=== PATIENT | male | born 1955 | race Caucasian/White ===

== ENCOUNTER 2017-11-17 14:12 | Day surgery (SDC) | END 2017-11-17 21:36 | disposition home or self-care (01) ==

== ENCOUNTER 2017-12-29 15:22 | Inpatient (IN) | END 2017-12-31 13:25 | disposition home or self-care (01) | DRG 872 ==

== ENCOUNTER 2018-01-16 14:51 | Emergency (ER) | END 2018-01-16 20:16 | disposition home or self-care (01) ==

== ENCOUNTER 2018-04-27 13:57 | Day surgery (SDC) | payer OTHER ==
[2018-04-27] VITALS (16 sets, daily range): BP systolic 80–186; BP diastolic 84–109; PULSE 68–84; RESP 15–23; Ht 172.7 cm; Wt 126.6 kg
[~2018-04-27] VITALS: Ht 172.7 cm; Wt 126.6 kg
[~2018-04-27 13:57] MED LIST: ALBU8.5H8 INH; AMLO-147 PO; ASPI-817 PO; BUSP10TA2 PO; CEPH-443 PO; DICL50TA11 PO; FAMO40TA5 PO; FINA5TAB4 PO; GABA300C16 PO; GLIM2TAB PO; IPRA4AER INHALATION; LISI40TA3 PO; MECL-77 PO; METF100010 PO; METO-429 PO; MONT10TA24 PO; OMEP20CA16 PO; OXYB5TAB PO; PRAS10TA6 PO; SULF1TAB31 PO; SYMB80120 INHALATION; TAMS-14 PO; TIMO5DRO30 BOTH EYES; TIOT18CA INHALATION
[2018-04-27] MEDS ORDERED: FENTAnyl 50 MCG/ML VIAL ONE (17:19)
[2018-04-27] MEDS ORDERED: MIDAZOLAM 1 MG/ML 2 ML INJ ONE (17:19)
[2018-04-27] MEDS ORDERED: LIDOCAINE 1% (MDV) 20 ML INJ ONE (17:20)
[2018-04-27] MEDS ORDERED: IODIXANOL LOCM 100 ML BTL ONE ×3 (17:20→17:51)
[2018-04-27] MEDS ORDERED: DIPHENHYDRAMINE 50 MG INJ ONE (17:26)
--- NOTE | 2018-04-27 18:09 | SIPON ---
Date/Time of Note Date/Time of Note DATE: 04/27/18 TIME: 18:08 Operative Report Preoperative Diagnosis unstable angina Postoperative Diagnosis same Operation/Procedure Performed left heart cath Surgeon see signature line office manager executive assistant none Anesthesia: moderate sedation, other Estimated blood loss: 0 - 10 ml's Transfusion Required none Specimen none Grafts/Implants none Complications none JANIE ALEJO MD Apr 27, 2018 18:09
[2018-04-27] MEDS ORDERED: SOD CHLORIDE 0.45% 1,000 ML IV SCH (19:00)
[2018-04-27] MEDS ORDERED: GLUCOSE GEL 15 GRAM TUBE PO PRN ×2 (21:00)
[2018-04-27] MEDS ORDERED: AMLODIPINE 10 MG TAB PO ONE ×2 (21:00→22:00)
[2018-04-27] MEDS ORDERED: ASPIRIN 81 MG TAB PO ONE (21:00)
[2018-04-27] MEDS ORDERED: GLIMEPIRIDE 2 MG TAB PO ONE (21:00)
[2018-04-27] MEDS ORDERED: DEXTROSE 50% 50 ML SYRINGE IV PRN ×2 (21:00)
[2018-04-27] MEDS ORDERED: METOPROLOL 25 MG TAB PO SCH (21:00)
[2018-04-27] MEDS ORDERED: GLUCAGON 1 MG INJ IM PRN (21:00)
[2018-04-27] MEDS ORDERED: GLUCOSE GEL 15 GRAM TUBE BUCCAL PRN (21:00)
[2018-04-27] MEDS ORDERED: LISINOPRIL 20 MG TAB PO ONE (21:00)
--- NOTE | 2018-04-28 10:18 | OPR ---
DATE OF OPERATION: 04/27/2018 INDICATION FOR THE PROCEDURE: Significant chest pain, shortness of breath. The patient had a positive stress test. As a result, the patient now presents for angiography. The patient has had a history of coronary artery disease as well as a single vessel coronary artery b ypass graft of the THACKER to the LAD territory as well as a history of aortic valve replacement with a bioprosthetic valve. PROCEDURE: 1. Left heart catheterization. 2. Selective right coronary angiography, attempted. 3. Aortic root angiography. 4. Left coronary angiography. 5. O2 sat monitoring, blood pressure monitoring. 6. Attempting THACKER angiography. 7. Left ventriculogram was not performed. 8. O2 sat monitoring, blood pressure monitoring as well as conscious sedation for 1 hour. 9. Please note that at [facility] the laboratory for the catheterization has been turned down for repairs. As a result, we used a fluoroscopy such as C-arm and the images are not as optimal as normal sonography performed in the cardiac catheterization laboratory. The patient weighs approximately 240 pounds. DESCRIPTION OF PROCEDURE: After informed consent was obtained by the patient, the patient was aman t to the catheterization laboratory where the patient's right groin was prepped and draped in usual s terile fashion. Following this, 1% lidocaine was used in order to infiltrate the right groin. A 6-F rench sheath was placed. Following this, the patient had over the wire system in order to perform th e catheterization. The left coronary angiography was performed; attempted right coronary angiography was performed and also aortic root angiography was performed. Left ventriculogram was not performed secondary to aortic valve prosthesis. FINDINGS: 1. The left main was patent. The left main gave branches to the LAD. There was a retrograde fill i nto the bypass graft by injecting through the left main. It appeared to be patent. In addition to t his, the patient had a patent circumflex coronary artery and it was large, as well as a large LAD. T hen, it was patent. The diagonal branch was bypassed. In addition to this, the patient had a very s mall diagonal on angle which was approximately 80% blocked. However, this was bypassed. A right coronary angiography was attempted multiple times with different catheters. However, due to the fact that the patient has aortic root and aortic valve procedure, I was unable to perform this pr ocedure secondary to anatomy. Different catheters were performed. Aortic root angiography was then performed and the visualization of the right coronary was not seen. It is possible that the RCA is o ccluded. The patient will be managed medically at this point, there is no need to stent the small stenosis vis ualized near the bypass graft because it was bypassed. IMPRESSION: Coronary artery disease present. The patient will be continued to have medical therapy and will follow up with me. Dictated By: JANIE ALEJO MD, LP/ES Conf#: [id number] DID#: [id number]
--- NOTE | 2018-04-28 10:51 | OPR ---
DATE OF OPERATION: 04/27/2018 INDICATION FOR THE PROCEDURE: History of coronary artery disease, hypertension, hyperlipidemia, as w ell as obesity and diabetes. Patient has had a history of coronary bypass graft with a single vessel bypass as well as aortic valve replacement. The bypass was approximately 2 years ago. Now, the pat ient presents for angiogram secondary to the fact that the patient's stress test was positive. PROCEDURE: 1. Left heart catheterization. 2. Selective left coronary angiography. 3. Attempted right coronary angiography in a selective fashion. 4. Aortic root angiography. 5. Left ventriculogram was not performed due to aortic valve bioprosthesis. 6. Right groin angiography and Angio-Seal deployment. 7. Conscious sedation. 8. O2 sat monitoring, blood pressure monitoring. DESCRIPTION OF PROCEDURE: After informed consent was obtained by the patient, the patient was aman t to the catheterization laboratory where the patient's right groin was prepped and draped in usual s terile fashion. Following this, 1% lidocaine was used in order to infiltrate at the right groin. Th en, following a 6-Kyrgyz sheath was placed and over the wire system was used in order to advance the catheter into the coronary system. Following this, angiography was performed. FINDINGS: 1. The patient had a patent left main artery. Left main gave branches to the circumflex as well as to the LAD. Diagonal branch was bypassed and there was a retrograde fill. It appeared to be patent. 2. The patient had attempted right coronary angiography and it was not possible secondary to the his tory of replacement of the aortic valve and could not engage into the right coronary artery. Therefo re, aortic root angiography was performed and I was not able to see the right coronary artery. It is possible that the right coronary artery is occluded. 3. No complications occurred. 4. The left main was patent. The left main gave branches to the LAD and circumflex. 5. The LAD was patent. The circumflex was patent with 20% stenosis. There was a diagonal branch wh ich had approximately 80% stenosis and this was actually bypassed. It appeared that the patient had retrograde fill to the bypass. 3. The RCA was not visualized. Aortic root angiography was performed and I could not see the RCA ei ther and the aortic root did not appear to be enlarged. IMPRESSION: Vascular disease present but no need for intervention secondary to the bypass grafting p resent. The patient will continue current medical therapy and follow up with me. Dictated By: JANIE ALEJO MD, LP/ES Conf#: [id number] DID#: [id number]
== END 2018-04-27 22:03 | disposition home or self-care (01) ==
LOC: CCL 13:57 → SDS 13:57 → CCL 22:03
PROVIDERS: ATTEND Internal Medicine
DX: I25.10 Atherosclerotic heart disease of native coronary artery without angina pectoris (principal); E11.9 Type 2 diabetes mellitus without complications; R94.31 Abnormal electrocardiogram [ECG] [EKG]; I73.9 Peripheral vascular disease, unspecified; I10 Essential (primary) hypertension; J45.909 Unspecified asthma, uncomplicated; Z87.891 Personal history of nicotine dependence
CPT/HCPCS: 71045; 82962; 93454; C1760; C1887; C1894; J1200; J1644; J2250; J3010; Q9967; Z7610

== ENCOUNTER 2018-07-30 13:12 | Inpatient (IN) | payer OTHER ==
[2018-07-30] VITALS (15 sets, daily range): BP systolic 136–158; BP diastolic 81–98; PULSE 66–72; RESP 15–29; Ht 170.2 cm; Wt 124.4 kg
[~2018-07-30] VITALS: Ht 170.2 cm; Wt 124.4 kg
[~2018-07-30 13:12] MED LIST changes: -CEPH-443 PO; +PROPOFOL 200 MG INJ ONE; -SULF1TAB31 PO
[2018-07-30] MEDS ORDERED: VANCOMYCIN 1 GM (PMX) 250 ML ONE (13:50)
[2018-07-30] MEDS ORDERED: METO-407 PO ×2 (14:14→19:58)
[2018-07-30] MEDS ORDERED: GLIM2TAB47 PO ×2 (14:17→19:58)
[2018-07-30] MEDS ORDERED: FURO-109 PO (14:18)
[2018-07-30] MEDS ORDERED: ISOS30TA67 PO (14:18)
[2018-07-30] MEDS ORDERED: AMIO200T4 PO (14:19)
[2018-07-30] MEDS ORDERED: PRAS10TA6 PO (14:19)
[2018-07-30] MEDS ORDERED: METF100010 PO (14:20)
[2018-07-30] MEDS ORDERED: VANCOMYCIN 1 GM (PMX) 250 ML IVPB ONE (14:30)
[2018-07-30] MEDS ORDERED: FENTAnyl 50 MCG/ML VIAL ONE (15:00)
[2018-07-30] MEDS ORDERED: POLYMYXIN/BACITRACIN 1L IRRIG ONE (15:06)
[2018-07-30] MEDS ORDERED: LIDOCAINE 1%/EPI (1:100,000) (MDV) 20 ML ONE (15:10)
--- NOTE | 2018-07-30 15:11 | PREAC ---
Date/Time of Note Date/Time of Note DATE: 07/30/18 TIME: 15:07 Anesthesia Eval and Record Evaluation Time Pre-Procedure Interview DATE: 07/30/18 TIME: 15:07 Age 63 Sex male NPO: 8 hrs Preoperative diagnosis CAD, s/p CABG, and AVR, s/p ICD placement Planned procedure Bi-Vent ICD placement Past Medical History Past Medical History: Includes Cardio: HTN, Dyslipidemia, CAD, CABG (in 2013), CHF (EF 35-40%), Other ([facility]R at [facility]) Endo: Diabetes Pulm: Asthma GI: Obesity Surgery & Anesthesia Issues No known issue Meds Anticoagulation: No Beta Mayito within 24 hr: Yes Reported Medications Metformin Hcl* (Metformin Hcl*) 1,000 Mg Tablet, 1000 MG PO WITH LUNCH, #30 TAB 07/30/18 Prasugrel Hydrochloride* (Effient*) 10 Mg Tablet, 10 MG PO DAILY, TAB 07/30/18 Amiodarone Hcl* (Amiodarone Hcl*) 200 Mg Tablet, 200 MG PO DAILY, #30 TAB 07/30/18 Furosemide* (Lasix*) 40 Mg Tablet, 40 MG PO DAILY, TAB 07/30/18 Isosorbide Mononitrate* (Isosorbide Mononitrate*) 30 Mg Tab.er.24h, 30 MG PO DAILY, TAB 07/30/18 Glimepiride* (Amaryl*) 2 Mg Tablet, 2 MG PO WITH BREAKFAST DINNE, TAB 07/30/18 Metoprolol Tartrate* (Lopressor*) 100 Mg Tablet, 100 MG PO BID, #60 TAB 07/30/18 Albuterol Sulfate* (Proair HFA*) 8.5 Gm Hfa.aer.ad, 2 PUFF INH Q4H PRN for WHEEZING AND SOB, #1 INHALER 11/17/17 Albuterol/Ipratropium* (Combivent Respimat*) 20-100 Mcg/Inh - 4 Gm Aer.w.adap, 1 PUFF INHALATION QID, #1 INHALER 11/17/17 Budesonide-Formoterol Fumarate* (Symbicort*) 80-4.5 Inha, 2 PUFFS INHALATION BID, #1 EACH 11/17/17 Tiotropium [place]* (Spiriva*) 18 Mcg Cap.w.dev, 1 CAP INHALATION DAILY, #30 CAP 11/17/17 Aspirin* (Aspirin* EC) 81 Mg Tablet.dr, 81 MG PO DAILY, TAB 11/17/17 Omeprazole* (Omeprazole*) 20 Mg Capsule.dr, 20 MG PO DAILY, #30 CAP 11/17/17 Lisinopril* (Lisinopril*) 40 Mg Tablet, 40 MG PO DAILY, #30 TAB 11/17/17 Tamsulosin Hcl* (Flomax*) 0.4 Mg Cap.er.24h, 0.4 MG PO BID, CAP 11/17/17 Discontinued Reported Medications Meclizine Hcl* (Meclizine Hcl*) 25 Mg Tablet, 25 MG PO BID, TAB 11/17/17 Timolol Maleate* (Timoptic*) 0.5%-5ml Opht, 1 DROP BOTH EYES BID, #1 EA 11/17/17 Prasugrel Hydrochloride* (Effient*) 10 Mg Tablet, 10 MG PO DAILY, TAB 11/17/17 Finasteride* (Finasteride*) 5 Mg Tablet, 5 MG PO DAILY, TAB 11/17/17 Diclofenac Sodium* (Diclofenac Sodium*) 50 Mg Tablet.dr, 50 MG PO DAILY, #60 TAB 11/17/17 Famotidine* (Famotidine*) 40 Mg Tablet, 40 MG PO HS, #30 TAB 11/17/17 Metoprolol Tartrate* (Lopressor*) 50 Mg Tab, 50 MG PO BID, #60 TAB 11/17/17 Amlodipine Besylate* (Amlodipine Besylate*) 10 Mg Tablet, 10 MG PO DAILY, #30 TAB 11/17/17 Gabapentin* (Gabapentin*) 300 Mg Capsule, 300 MG PO DAILY, #60 CAP 11/17/17 Glimepiride* (Glimepiride*) 2 Mg Tablet, 2 MG PO WITH BREAKFAST, TAB 11/17/17 Montelukast Sodium* (Montelukast Sodium*) 10 Mg Tablet, 10 MG PO QHS, #30 TAB 11/17/17 Buspirone Hcl* (Buspirone Hcl*) 10 Mg Tab, 10 MG PO BID, TAB 11/17/17 Oxybutynin Chloride (Oxybutynin Chloride ER) 5 Mg Tab.er.24, 5 MG PO DAILY, TAB 11/17/17 Metformin Hcl* (Metformin Hcl*) 1,000 Mg Tablet, 1000 MG PO BID, #30 TAB 11/17/17 Current Medications Vancomycin HCl 250 ml @ 250 mls/hr PRE-OP ONCE IVPB Last administered on 07/30/18at 14:05; Admin Dose 250 MLS/HR; Start 07/30/18 at 14:30; Stop 07/30/18 at 15:29 Meds reviewed: Yes Allergies Coded Allergies: ciprofloxacin (Verified Allergy, Severe, sob, rash, swelling, 07/30/18) Allergies Reviewed: Yes Labs/Studies Labs Reviewed: Reviewed by anesthesiologist test: N/A Studies: ECG (refer to chart), CXR (n/a) Pre-procedure Exam Last vitals Vital Signs Date Temp Pulse Resp B/P (MAP) Pulse Ox O2 O2 Flow FiO2 Time Delivery Rate 07/30/18 98.3 70 16 158/83 93 Room Air 13:20 (108) Airway: Adequate mouth opening, Adequate thyromental dist Mallampati: Mallampati III Teeth: Normal Lung: Normal Heart: Normal ASA Physical Status ASA physical status: 3 Emergency: None Planned Anesthetic General/MAC: MAC Planned Pain Management Parenteral pain med Pre-operative Attestations Prior to commencing anesthesia and surgery, the patient was re-evaluated, there was verification of: *The patient's identity *The results of appropriate recent lab work and preoperative vital signs *The above evaluation not changing prior to induction *Anesthetic plan, risk benefits, alternative and complications discussed with patient/family; questions answered; patient/family understands, accepts and wishes to proceed. MARY ENNIS MD Jul 30, 2018 15:11
[2018-07-30] MEDS ORDERED: MIDAZOLAM 1 MG/ML 2 ML INJ ONE (15:16)
[2018-07-30] MEDS ORDERED: PROPOFOL 40 ML ONE (15:24)
[2018-07-30] MEDS ORDERED: EPHEDrine SULFATE 50 MG/5 ML SYG IV PRN (15:30)
[2018-07-30] MEDS ORDERED: OXYCODONE/ACETAMINOPHEN (5/325) TAB PO PRN (15:30)
[2018-07-30] MEDS ORDERED: METOCLOPRAMIDE 10 MG INJ IV PRN (15:30)
[2018-07-30] MEDS ORDERED: hydrALAzine 20 MG INJ IV PRN (15:30)
[2018-07-30] MEDS ORDERED: FENTAnyl 50 MCG/ML VIAL IV PRN ×2 (15:30)
[2018-07-30] MEDS ORDERED: ONDANSETRON 4 MG INJ IV PRN (15:30)
[2018-07-30] MEDS ORDERED: LABETALOL HCL 20MG INJ IV PRN (15:30)
[2018-07-30] MEDS ORDERED: HYDROmorphONE 1 MG/5 ML IV SYRINGE IV PRN ×2 (15:30)
[2018-07-30] MEDS ORDERED: ONDANSETRON 4 MG INJ ONE (15:34)
[2018-07-30] MEDS ORDERED: IODIXANOL LOCM 100 ML BTL ONE (15:40)
--- NOTE | 2018-07-30 17:25 | SIPON ---
Date/Time of Note Date/Time of Note DATE: 07/30/18 TIME: 17:24 Operative Report Preoperative Diagnosis chf and cmp Postoperative Diagnosis same Operation/Procedure Performed bi v ICD ugrade from ICd Surgeon see signature line academic support assistant none Anesthesia: MAC Estimated blood loss: 0 - 10 ml's Transfusion Required none Specimen bi v icd upgraded Grafts/Implants none Complications none JANIE ALEJO MD Jul 30, 2018 17:25
--- NOTE | 2018-07-30 17:42 | PAC ---
Date/Time of Note Date/Time of Note DATE: 07/30/18 TIME: 17:42 Post-Anesthesia Notes Post-Anesthesia Note Last documented vital signs Vital Signs Date Temp Pulse Resp B/P (MAP) Pulse Ox O2 O2 Flow FiO2 Time Delivery Rate 07/30/18 98.3 70 16 158/83 93 Room Air 17:20 (108) Activity: WNL Respiratory function: WNL Cardiovascular function: WNL Mental status: Baseline Pain reasonably controlled: Yes Hydration appropriate: Yes Nausea/Vomiting absent: Yes MARY ENNIS MD Jul 30, 2018 17:42
--- NOTE | 2018-07-30 18:43 | RADRPT ---
Vent Rate: 85 bpm RR Interval: 706 msec KS Interval: 77 msec QRS Duration: 124 msec QT Interval: 403 msec QTC Interval: 480 msec P-R-T Counselor: [phone] - -5 - 125 degrees Sinus rhythm Multiple ventricular premature complexes...V complexes w/ short R-R intervls Left bundle branch block...QRSd>120, broad/notched R Electronically Signed By: Deon Arboleda
[2018-07-30] MEDS ORDERED: HYDROCODONE/APAP (5/325) TAB PO PRN (19:00)
[2018-07-30] MEDS ORDERED: FINA5TAB4 PO (19:58)
[2018-07-30] MEDS ORDERED: AMLO-147 PO (19:58)
[2018-07-30] MEDS ORDERED: MONT4TAB8 PO (19:58)
--- NOTE | 2018-07-30 20:10 | OPR ---
DATE OF OPERATION: 07/30/2018 INDICATION FOR THE PROCEDURE: Cardiomyopathy, shortness of breath, history of ICD, history of myocar dial infarction, history of coronary artery disease, history of worsening congestive heart failure an d left bundle branch block on optimal medical therapy with ejection fraction of less than 35%, who no w presents for a biventricular pacemaker plus cardiac defibrillator upgrade from an implantable cardi ac defibrillator. In addition to this, the patient has also had episodes of ventricular tachycardia PROCEDURES: 1. ICD interrogation and reprogramming prior to procedure. 2. Biventricular pacemaker plus a cardiac defibrillator interrogation and reprogramming post-procedu re. 3. Defibrillator pad placement anteriorly and posteriorly. 4. Removal of the implantable cardiac defibrillator. 5. Implantation of a new biventricular pacemaker plus a cardiac defibrillator. 6. Implantation of a left ventricular lead. 7. Coronary sinus venography in a selective fashion. 8. Coronary sinus venography in nonselective fashion. 9. Buckeye-Brent catheterization in order to visualize the coronary ostium. 10. Right atrial pacing recording. 11. Right ventricular pacing recording. 12. Left ventricular pacing recording. 13. Removal of the implantable defibrillator. 14. Defibrillation threshold testing. 15. External cardioversion utilizing 2 joules of synchronized energy to test the device. 16. Pocket revision. 17. Long and complex case to the fact that this was an upgrade and the patient had a lot of scar tis dawood in the left chest region where the device is. 18. Continuous blood pressure monitoring. DESCRIPTION OF PROCEDURE: After informed consent was obtained by the patient, the patient was aman t to the catheterization laboratory where the patient's left chest and neck region was prepped and dr aped in usual sterile fashion. Following this, 1% lidocaine was used in order to infiltrate at the l eft deltopectoral groove. Then, following this, 1 inch incision was made. The device was removed fr om the pocket. Device and leads were then tested one by one. Following this, contrast anteroseptal of left subclavian vessel was performed. Following this, a subclavian stick was performed and follow ing this fluoroscopic guidance was used in order to help in regards to place the wire into the positi on. Following this, coronary sinus venography and coronary sinus cannulation was performed. Then, b alloon venography was performed with a Buckeye-Brent catheterization system. Following this, the patient had placement of an LV lead into the tributary. Capture thresholds were visualized. There was 1 vo lt at 0.4 msec. Following this, device and leads were connected to each other and placed into the po cket. Pocket was sutured using 2-0 Vicryl and 4-0 Vicryl. Defibrillation threshold testing was perf ormed. Following this, no complications occurred. The patient left the cardiac operating room in st able condition. IMPLANTED MATERIAL: A SPRAY [employer]D [employer] Quattro Assura MP 3369-40Q, serial #[id number]. The right atrial lead is a Tendril MRI [id number] and this was implanted on 11/17/2017. The right ventricular lead is a Optisure [id number] and serial number [id number]. The new left ventricular lead is a [employer] Quartet 1458Q-86 cm, serial number [id number]. Right atrial P waves were 3.5 millivolts, impedance of 510 ohms, threshold 0.625 volts at 0.5 msec. Right ventricular R waves are 12 millivolts, impedance of 400 ohms, threshold of 0.75 volts at 0.5 ms ec. IMPRESSION: Successful upgrade of biventricular pacemaker plus a cardiac defibrillator from the impl antable defibrillator with no complications. Dictated By: JANIE ALEJO MD LP/NTS Conf#: [id number] DID#: [id number] CC: JANIE ALEJO MD;*EndCC*
[2018-07-30] MEDS ORDERED: ACETAMINOPHEN 325 MG TAB PO PRN (20:30)
[2018-07-30] MEDS ORDERED: GLUCAGON 1 MG INJ IM PRN (21:00)
[2018-07-30] MEDS ORDERED: DEXTROSE 50% 50 ML SYRINGE IV PRN ×2 (21:00)
[2018-07-30] MEDS ORDERED: MONTELUKAST 10 MG TAB PO SCH (21:00)
[2018-07-30] MEDS: ACCU-CHEK XX SCH (21:00)
[2018-07-30] MEDS ORDERED: NON-FORMULARY/PATIENT OWN MED (Albuterol/Ipratropium* (Combivent Respimat*) 2 PUFF) INHALATION SCH (21:00)
[2018-07-30] MEDS ORDERED: METOPROLOL 100 MG TAB PO SCH (21:00)
[2018-07-30] MEDS ORDERED: GLUCOSE GEL 15 GRAM TUBE PO PRN ×2 (21:00)
[2018-07-30] MEDS ORDERED: GLUCOSE GEL 15 GRAM TUBE BUCCAL PRN (21:00)
[2018-07-30] MEDS ORDERED: TAMSULOSIN (SR) 0.4 MG CAP PO SCH (21:00)
[2018-07-30] MEDS: CEFAZOLIN 1 GM/50 ML (PMX) 50 ML IVPB SCH (21:14)
[2018-07-31] VITALS (7 sets, daily range): BP systolic 137–141; BP diastolic 73–84; PULSE 68–81; RESP 18
[2018-07-31] MEDS: CEFAZOLIN 1 GM/50 ML (PMX) 50 ML IVPB SCH ×2 (05:27→11:04)
[2018-07-31] MEDS ORDERED: PANTOPRAZOLE (EC) 40 MG TAB PO SCH (06:00)
[2018-07-31] MEDS: ACCU-CHEK XX SCH ×2 (08:00→11:30)
[2018-07-31] MEDS ORDERED: GLIMEPIRIDE 2 MG TAB PO SCH (08:00)
[2018-07-31] MEDS ORDERED: PRASUGREL HYDROCHLORIDE 10 MG TABLET PO SCH (09:00)
[2018-07-31] MEDS ORDERED: FUROSEMIDE 40 MG TAB PO SCH (09:00)
[2018-07-31] MEDS ORDERED: ASPIRIN (EC) 81 MG TAB PO SCH (09:00)
[2018-07-31] MEDS ORDERED: TIOTROPIUM 18 MCG CAPSULE INHA DEV INH SCH (09:00)
[2018-07-31] MEDS ORDERED: LISINOPRIL 20 MG TAB PO SCH (09:00)
[2018-07-31] MEDS ORDERED: METOPROLOL 100 MG TAB PO SCH (09:00)
[2018-07-31] MEDS ORDERED: FINASTERIDE 5 MG TAB PO SCH (09:00)
[2018-07-31] MEDS ORDERED: AMLODIPINE 10 MG TAB PO SCH (09:00)
--- NOTE | 2018-07-31 13:21 | HP ---
Date/Time of Note Date/Time of Note DATE: 07/31/18 TIME: 13:21 Assessment/Plan VTE Prophylaxis Risk score (from [facility])>0 risk: 3 SCD applied (from [facility]): No SCD contraindicated: low risk/ambulating Pharmacological prophylaxis: NA/contraindicated Pharm contraindication: low risk/ambulating Lines/Catheters IV [facility]from [facility] Saline Lock Assessment/Plan Hospital Course 1. S/p biventricular pacemaker placement plus cardiac defibrillator upgrade from an implantable cardiac defibrillator 07/30/[address] Yañez 2. Hx of cardiomyopathy, EF 35 %. S/p open heart surgery and bypass. Incomplete data 3. Hx of previously implanted ICD, 2017 4. History of myocardial infarction, 5. History of coronary artery disease with 2 stent placement 6. Morbid obesity 7. hx of left bundle branch block o 8. DM type II 9. Hypertension 10. BPH Assessment/Plan -overnight telemetry, no events -pacemaker is optimal _BS ids consistent to DM type II -wound is clean -pt is ambulating -tolerating the diet -arm sling is ordered, instr, not to raise arm above the shoulder 2 weeks Results 24hrs Laboratory Tests Test 07/30/18 14:03 07/30/18 21:01 07/31/18 08:13 07/31/18 11:53 Bedside Glucose 151 120 157 162 HPI/ROS Admit Date/Time Admit Date/Time Jul 30, 2018 at 18:39 Hx of Present Illness THIS 63 y.o patient with hx of cardiomyopathy, shortness of breath, history of prior ICD, history of myocardial infarction, history of coronary artery disease, history of worsening congestive heart failure, morbid obesity and left bundle branch block. Dr Yañez has treated him outpatient, now he presents for a biventricular pacemaker plus cardiac defibrillator upgrade from an implantable cardiac defibrillator. PMH/Family/Social Past Medical History Medical History: congestive heart failure, coronary artery disease, diabetes, hypertension Medications Current Medications Cefazolin Sodium 50 ml @ 100 mls/hr Q8 IVPB Last administered on 07/31/18at 11:04; Admin Dose 100 MLS/HR; Start 07/30/18 at 22:00; Stop 07/31/18 at 14:29 Acetaminophen/ Hydrocodone Bitart ([place] (5/325)) 1 tab Q4H PRN PO MODERATE PAIN LEVEL 4-6; Start 07/30/18 at 19:00 Amlodipine Besylate (Norvasc) 10 mg DAILY PO Last administered on 07/31/18 08:32; Admin Dose 10 MG; Start 07/31/18 at 09:00 Aspirin (Halfprin) 81 mg DAILY PO Last administered on 07/31/18 08:31; Admin Dose 81 MG; Start 07/31/18 at 09:00 Finasteride (Proscar) 5 mg DAILY PO Last administered on 07/31/18 08:32; Admin Dose 5 MG; Start 07/31/18 at 09:00 Furosemide (Lasix) 40 mg DAILY PO Last administered on 07/31/18 08:31; Admin Dose 40 MG; Start 07/31/18 at 09:00 Glimepiride (Amaryl) 2 mg WITH BREAKFAST DINNE PO Last administered on 07/31/18 08:26; Admin Dose 2 MG; Start 07/31/18 at 08:00 Lisinopril (Zestril) 40 mg DAILY PO Last administered on 07/31/18 08:32; Admin Dose 40 MG; Start 07/31/18 at 09:00 Metformin HCl (Glucophage) 1,000 mg WITH LUNCH PO ; Start 08/01/18 at 12:00 Metoprolol Tartrate (Lopressor) 100 mg QHS PO Last administered on 07/30/18 20:55; Admin Dose 100 MG; Start 07/30/18 at 21:00 Metoprolol Tartrate (Lopressor) 200 mg DAILY PO Last administered on 07/31/18 08:33; Admin Dose 200 MG; Start 07/31/18 at 09:00 Montelukast Sodium (Singulair) 10 mg QHS PO Last administered on 07/30/18 20:55; Admin Dose 10 MG; Start 07/30/18 at 21:00 Prasugrel (Effient) 10 mg DAILY PO Last administered on 07/31/18 08:31; Admin Dose 10 MG; Start 07/31/18 at 09:00 Tamsulosin HCl (Flomax) 0.4 mg QHS PO Last administered on 07/30/18 20:55; Admin Dose 0.4 MG; Start 07/30/18 at 21:00 Miscellaneous Information 2 puff BID INHALATION ; Start 07/30/18 at 21:00; St atus UNV Miscellaneous Information 2 puffs BID INHALATION ; Start 07/30/18 at 21:00; Status UNV Pantoprazole (Protonix Tab) 40 mg DAILY@0600 PO Last administered on 07/31/18at 05:27; Admin Dose 40 MG; Start 07/31/18 at 06:00 Diagnostic Test (Pha) (Accu-Chek) 1 ea AC MEALS AND BEDTIME XX ; Start 07/30/18 at 21:00 Acetaminophen (Tylenol Tab) 650 mg Q4H PRN PO MILD PAIN(1-3)OR ELEVATED TEMP Last administered on 07/30/18at 21:31; Admin Dose 650 MG; Start 07/30/18 at 20:30 Miscellaneous Information 1 ea NOTE XX ; Start 07/30/18 at 21:00 Glucose (Glutose) 15 gm Q15M PRN PO DECREASED GLUCOSE; Start 07/30/18 at 21:00 Glucose (Glutose) 22.5 gm Q15M PRN PO DECREASED GLUCOSE; Start 07/30/18 at 21:00 Dextrose (D50w Syringe) 25 ml Q15M PRN IV DECREASED GLUCOSE; Start 07/30/18 at 21:00 Dextrose (D50w Syringe) 50 ml Q15M PRN IV DECREASED GLUCOSE; Start 07/30/18 at 21:00 Glucagon (Glucagen) 1 mg Q15M PRN IM DECREASED GLUCOSE; Start 07/30/18 at 21:00 Glucose (Glutose) 15 gm Q15M PRN BUCCAL DECREASED GLUCOSE; Start 07/30/18 at 21:00 Tiotropium [place] (Spiriva) 2 inh DAILY INH Last administered on 07/31/18at 08:30; Admin Dose 2 INH; Start 07/31/18 at 09:00 Coded Allergies: ciprofloxacin (Verified Allergy, Severe, sob, rash, swelling, 07/30/18) Past Surgical History Past Surgical Hx: coronary bypass surgery, other (ACID) Family History Significant Family History: no pertinent family hx Social History Smoking Status: Former smoker Exam/Review of Systems Vital Signs Vitals Vital Signs Date Temp Pulse Resp B/P (MAP) Pulse Ox O2 O2 Flow FiO2 Time Delivery Rate 07/31/18 71 12:11 07/31/18 97.9 18 141/82 91 11:22 (101) 07/31/18 Nasal 3.0 07:28 Cannula Intake and Output 07/30/18 07/30/18 07/31/18 1515:00 23:00 07:00 IntakeIntake Total 50 ml 850 ml OutputOutput Total 550 ml BalanceBalance 50 ml 300 ml Exam Exam left chest surgical dressing Constitutional: alert, oriented Neck: supple Respiratory: clear to auscultation Cardiovascular: regular rate and rhythm Gastrointestinal: soft THANIA WHITTINGTON Jul 31, 2018 13:21
--- NOTE | 2018-07-31 13:39 | DS ---
Date/Time of Note Date/Time of Note DATE: 07/31/18 TIME: 13:36 Discharge Summary Admission/Discharge Info Admit Date/Time Jul 30, 2018 at 18:39 Discharge Date/Time Discharge Diagnosis S/p biventricular pacemaker placement Patient Condition: Stable Consults Dr Barnard Procedures S/p biventricular pacemaker placement Hospital Course THIS 63 y.o patient with hx of cardiomyopathy, shortness of breath, history of prior ICD, DM type II, BPH, history of myocardial infarction, history of coronary artery disease, history of worsening congestive heart failure, morbid obesity and left bundle branch block. Dr Yañez has treated him outpatient, now he presents for a biventricular pacemaker plus cardiac defibrillator upgrade from an implantable cardiac defibrillator. Ds; 1. S/p biventricular pacemaker placement plus cardiac defibrillator upgrade from an implantable cardiac defibrillator 07/30/[address] Yañez 2. Hx of cardiomyopathy, EF 35 %. S/p open heart surgery and bypass. Incomplete data 3. Hx of previously implanted ICD, 2017 4. History of myocardial infarction, 5. History of coronary artery disease with 2 stent placement 6. Morbid obesity 7. hx of left bundle branch block o 8. DM type II 9. Hypertension 10. BPH On POD day 1 pt is ambulating, diet is tolerated, no pain. On monitor pacemaker rhythm. Home Meds Reported Medications Amlodipine Besylate* (Amlodipine Besylate*) 10 Mg Tablet, 10 MG PO DAILY, #30 TAB 07/30/18 Montelukast Sodium* (Singulair*) 4 Mg Tab.chew, PO QHS, #30 TAB 07/30/18 Finasteride* (Finasteride*) 5 Mg Tablet, 5 MG PO DAILY, TAB 07/30/18 Metoprolol Tartrate* (Lopressor*) 100 Mg Tablet, 100 MG PO QHS, #60 TAB 07/30/18 Glimepiride* (Amaryl*) 2 Mg Tablet, 2 MG PO WITH BREAKFAST DINNE, TAB 07/30/18 Metformin Hcl* (Metformin Hcl*) 1,000 Mg Tablet, 1000 MG PO WITH LUNCH, #30 TAB 07/30/18 Prasugrel Hydrochloride* (Effient*) 10 Mg Tablet, 10 MG PO DAILY, TAB 07/30/18 Furosemide* (Lasix*) 40 Mg Tablet, 40 MG PO DAILY, TAB 07/30/18 Glimepiride* (Amaryl*) 2 Mg Tablet, 2 MG PO WITH BREAKFAST DINNE, TAB 07/30/18 Metoprolol Tartrate* (Lopressor*) 100 Mg Tablet, 200 MG PO DAILY, #60 TAB 07/30/18 Albuterol/Ipratropium* (Combivent Respimat*) 20-100 Mcg/Inh - 4 Gm Aer.w.adap, 2 PUFF INHALATION BID, #1 INHALER 11/17/17 Budesonide-Formoterol Fumarate* (Symbicort*) 80-4.5 Inha, 2 PUFFS INHALATION BID, #1 EACH 11/17/17 Tiotropium [place]* (Spiriva*) 18 Mcg Cap.w.dev, 1 CAP INHALATION DAILY, #30 CAP 11/17/17 Aspirin* (Aspirin* EC) 81 Mg Tablet.dr, 81 MG PO DAILY, TAB 11/17/17 Omeprazole* (Omeprazole*) 20 Mg Capsule.dr, 20 MG PO DAILY, #30 CAP 11/17/17 Lisinopril* (Lisinopril*) 40 Mg Tablet, 40 MG PO DAILY, #30 TAB 11/17/17 Tamsulosin Hcl* (Flomax*) 0.4 Mg Cap.er.24h, 0.4 MG PO QHS, CAP 11/17/17 Discontinued Reported Medications Amiodarone Hcl* (Amiodarone Hcl*) 200 Mg Tablet, 200 MG PO DAILY, #30 TAB 07/30/18 Isosorbide Mononitrate* (Isosorbide Mononitrate*) 30 Mg Tab.er.24h, 30 MG PO DAILY, TAB 07/30/18 Albuterol Sulfate* (Proair HFA*) 8.5 Gm Hfa.aer.ad, 2 PUFF INH Q4H PRN for WHEEZING AND SOB, #1 INHALER 11/17/17 Meclizine Hcl* (Meclizine Hcl*) 25 Mg Tablet, 25 MG PO BID, TAB 11/17/17 Timolol Maleate* (Timoptic*) 0.5%-5ml Opht, 1 DROP BOTH EYES BID, #1 EA 11/17/17 Prasugrel Hydrochloride* (Effient*) 10 Mg Tablet, 10 MG PO DAILY, TAB 8/7/18 Finasteride* (Finasteride*) 5 Mg Tablet, 5 MG PO DAILY, TAB 11/17/17 Diclofenac Sodium* (Diclofenac Sodium*) 50 Mg Tablet.dr, 50 MG PO DAILY, #60 TAB 11/17/17 Famotidine* (Famotidine*) 40 Mg Tablet, 40 MG PO HS, #30 TAB 11/17/17 Metoprolol Tartrate* (Lopressor*) 50 Mg Tab, 50 MG PO BID, #60 TAB 11/17/17 Amlodipine Besylate* (Amlodipine Besylate*) 10 Mg Tablet, 10 MG PO DAILY, #30 TAB 11/17/17 Gabapentin* (Gabapentin*) 300 Mg Capsule, 300 MG PO DAILY, #60 CAP 11/17/17 Glimepiride* (Glimepiride*) 2 Mg Tablet, 2 MG PO WITH BREAKFAST, TAB 11/17/17 Montelukast Sodium* (Montelukast Sodium*) 10 Mg Tablet, 10 MG PO QHS, #30 TAB 11/17/17 Buspirone Hcl* (Buspirone Hcl*) 10 Mg Tab, 10 MG PO BID, TAB 11/17/17 Oxybutynin Chloride (Oxybutynin Chloride ER) 5 Mg Tab.er.24, 5 MG PO DAILY, TAB 11/17/17 Metformin Hcl* (Metformin Hcl*) 1,000 Mg Tablet, 1000 MG PO BID, #30 TAB 11/17/17 Follow-up Plan PCP 1 week Primary Care Provider Not On Staff Doctor Pending Labs Laboratory Tests Test 07/30/18 14:03 07/30/18 21:01 07/31/18 08:13 07/31/18 11:53 Bedside 151 120 157 162 Glucose mg/dL (70-220) mg/dL (70-220) mg/dL (70-220) mg/dL (70-220) THANIA WHITTINGTON Jul 31, 2018 13:39
--- NOTE | 2018-07-31 13:47 | PDOCDIS ---
Discharge Instructions DIAGNOSIS Discharge Diagnosis S/p biventricular pacemaker placement CONDITION [id number] Patient Condition: [id number] Stable HOME CARE INSTRUCTIONS: [id number] Diet Instructions: [id number] Low Fat /Cholesterol ACTIVITY: [id number] Activity Restrictions: [id number] Slowly Increase Activity Rest between Activity Avoid heavy lifting FOLLOW UP/APPOINTMENTS Follow-up Plan PCP 1 week, keep the arm sling left arm and do not raise above the shoulder THANIA WHITTINGTON Jul 31, 2018 13:47
[2018-07-31] MEDS ORDERED: [UNRECOGNIZED DRUG - OTHER] XX SCH (15:00)
[2018-07-31] MEDS ORDERED: IPRATROPIUM (HFA) 12.9 GM INHALER INH SCH (21:00)
[2018-07-31] MEDS ORDERED: NON-FORMULARY/PATIENT OWN MED (Albuterol/Ipratropium* (Combivent Respimat*) 2 PUFF) XX SCH (21:00)
[2018-07-31] MEDS ORDERED: ALBUTEROL HFA 8 GM INHALER INH SCH (21:00)
[2018-08-01] MEDS ORDERED: FLUTICASONE/VILANTEROL 200-25 INH DEVICE INH SCH (09:00)
[2018-08-01] MEDS ORDERED: metFORMIN 500 MG TAB PO SCH (12:00)
== END 2018-07-31 16:05 | disposition home or self-care (01) | DRG 227 ==
LOC: CCL 13:12 → SDS 13:12 → CCL 18:30 → REC 18:39 → 6WM 18:57
PROVIDERS: ADMIT Internal Medicine; ATTEND Internal Medicine
PROC: 0JH609Z Insertion of Cardiac Resynchronization Defibrillator Pulse Generator into Chest Subcutaneous Tissue and Fascia, Open Approach (ICD-10-PCS; 2018-07-30)
PROC: 02HL3KZ Insertion of Defibrillator Lead into Left Ventricle, Percutaneous Approach (ICD-10-PCS; 2018-07-30)
PROC: 0JPT0PZ Removal of Cardiac Rhythm Related Device from Trunk Subcutaneous Tissue and Fascia, Open Approach (ICD-10-PCS; principal; 2018-07-30 15:00)
DX: I47.2 Ventricular tachycardia (principal); I42.9 Cardiomyopathy, unspecified; Z68.41 Body mass index [BMI] 40.0-44.9, adult; I25.10 Atherosclerotic heart disease of native coronary artery without angina pectoris; I25.2 Old myocardial infarction; E66.01 Morbid (severe) obesity due to excess calories; E11.9 Type 2 diabetes mellitus without complications; I11.0 Hypertensive heart disease with heart failure; N40.0 Benign prostatic hyperplasia without lower urinary tract symptoms; I50.9 Heart failure, unspecified; I44.7 Left bundle-branch block, unspecified; Z95.3 Presence of xenogenic heart valve; Z95.5 Presence of coronary angioplasty implant and graft; Z95.1 Presence of aortocoronary bypass graft
CPT/HCPCS: 33249; 71045; 82962; 93005; C1882; C1900; J0690; J1644; J2250; J2405; J3010; J3370; Q9967